=== PATIENT | female | born 1975 | race Asian ===

== ENCOUNTER 2016-07-17 14:19 | Emergency (ER) | payer OTHER ==
[~2016-07-17] VITALS: Ht 167.6 cm; Wt 54.5 kg
[2016-07-17 16:16] VITALS: BP 118/69
[2016-07-20 16:25] LABS: HEPATITIS Bs ANTIGEN SCREEN P Negative (Negative); HEPATITIS C AB SCREEN <0.1 s/co ratio (0.0-0.9)
== END 2016-07-17 16:20 | disposition home or self-care (01) ==
LOC: EMS 14:23
DX: S61.236A Puncture wound without foreign body of right little finger without damage to nail, initial encounter (principal); W46.0XXA Contact with hypodermic needle, initial encounter; Y93.89 Activity, other specified; Y92.89 Other specified places as the place of occurrence of the external cause; Y99.8 Other external cause status
CPT/HCPCS: 80074; 86701; 99281; 99284

== ENCOUNTER → 2016-08-21 | Outpatient (CLI) | payer OTHER ==
[2016-08-22 14:14] LABS: HEPATITIS C AB SCREEN 0.1 s/co ratio (0.0-0.9)
== END | disposition home or self-care (01) ==
LOC: EMPHLTH 10:33
PROVIDERS: ATTEND Internal Medicine
DX: Z03.818 Encounter for observation for suspected exposure to other biological agents ruled out (principal)
CPT/HCPCS: 86705; 86706; 86803; 87389